=== PATIENT | male | born 1955 | race Caucasian/White ===

== ENCOUNTER 2019-07-18 08:47 | Emergency (ER) | payer MEDICARE ==
[~2019-07-18] VITALS: Ht 180.3 cm; Wt 70.5 kg
[2019-07-18 09:12] VITALS: BP 143/78; Ht 180.3 cm; Wt 70.5 kg
[2019-07-18] MEDS ORDERED: ULTRAM50 MG PO (11:01)
== END 2019-07-18 18:03 | disposition home or self-care (01) ==
LOC: D.ER 08:47
DX: M54.5 Low back pain (principal); J44.9 Chronic obstructive pulmonary disease, unspecified

== ENCOUNTER 2019-07-25 17:18 | Emergency (ER) | payer MEDICARE ==
[~2019-07-25] VITALS: Ht 180.3 cm; Wt 77.3 kg
[~2019-07-25 17:18] MED LIST: ULTRAM50 MG PO
[2019-07-25 17:22] VITALS: Ht 180.3 cm; Wt 77.3 kg
[2019-07-25 18:23] LABS: BASOPHILS 0.2 % (0-2); EOSINOPHILS 2.4 % (0-7); HEMATOCRIT 38.8 % (42.0-54.0); HEMOGLOBIN 12.9 g/dL (13.5-17.5); IMMATURE GRANULOCYTES 0.2 % (0-5); LYMPHOCYTES 30.3 % (15-50); MCH 32.8 pg (26.0-34.0); MCHC 33.2 g/dL (31.0-37.0); MCV 98.7 fL (80.0-100.0); MEAN PLATELET VOLUME 10.1 fL (7.4-10.4); MONOCYTES 5.6 % (2-11); NEUTROPHILS 61.3 % (40-80); PLATELET COUNT 249 10x3/uL (130-400); RBC 3.93 10x6/uL (4.20-6.10); RDW 13.9 % (11.5-14.5); WBC 9.1 10x3/uL (4.8-10.8)
[2019-07-25 18:32] LABS: CALC OSMOLALITY 285 mosm/kg (275-300); CALCIUM 8.9 mg/dL (8.5-10.1); CARBON DIOXIDE 29.2 mmol/L (21.0-32.0); CHLORIDE - SERUM 103 mmol/L (98-107); CREATININE - SERUM 1.3 mg/dL (0.6-1.3); GLUCOSE 99 mg/dL (74-106); POTASSIUM - SERUM 3.5 mmol/L (3.5-5.1); SODIUM 142 mmol/L (136-145); UREA NITROGEN 20 mg/dL (7-18); eGFR NON AFRICAN AMERICAN 59 mL/min (90-120)
[2019-07-25 18:33] LABS: INR 1.04 (0.85-1.17); PROTIME 13.1 SECONDS (11.6-15.0)
[2019-07-25 18:34] LABS: APTT 31.5 SECONDS (22.8-39.4)
[2019-07-25 18:35] LABS: APPEARANCE CLEAR (CLEAR); BILIRUBIN NEGATIVE (NEGATIVE); COLOR YELLOW (YELLOW); EPITHELIAL CELLS 0-5 /hpf (0-5); GLUCOSE NEGATIVE (NEGATIVE); KETONE NEGATIVE (NEGATIVE); NITRITE NEGATIVE (NEGATIVE); PROTEIN NEGATIVE (NEGATIVE); RED CELLS - URINE 0-5 /hpf (0-5); UROBILINOGEN NORMAL (NORMAL); WHITE CELLS - URINE 0-5 /hpf (NEGATIVE)
[2019-07-25 18:49] LABS: ALBUMIN 3.8 g/dL (3.4-5.0); ALKALINE PHOSPHATASE 59 U/L (46-116); ALT (SGPT) 26 U/L (10-68); BILIRUBIN - TOTAL 0.66 mg/dL (0.2-1.3); CKMB 7.6 U/L (0.0-3.6); CREATINE KINASE 433 UL (21-232); MAGNESIUM - SERUM 1.8 mg/dL (1.8-2.4); PROTEIN - SERUM 7.8 g/dL (6.4-8.2)
[2019-07-25 18:54] LABS: TROPONIN-I < 0.017 ng/mL (0.000-0.060)
[2019-07-25 19:04] LABS: UDS - AMPHET POSITIVE QUAL (NEGATIVE); UDS - BARB NEGATIVE QUAL (NEGATIVE); UDS - BENZO NEGATIVE QUAL (NEGATIVE); UDS - COCAINE NEGATIVE QUAL (NEGATIVE); UDS - OPIATE NEGATIVE QUAL (NEGATIVE); UDS - PCP NEGATIVE QUAL (NEGATIVE); UDS - THC POSITIVE QUAL (NEGATIVE)
[2019-07-25 20:42] VITALS: BP 171/76
[2019-07-27 12:08] LABS: HEPATITIS C ANTIBODY 2.5 (0.0-0.9)
[2019-07-29 09:08] LABS: HIV-1 RNA BY PCR <20 (())
== END 2019-07-25 20:43 | disposition home or self-care (01) ==
LOC: D.ER 17:18
PROVIDERS: Family Medicine
DX: E86.0 Dehydration (principal); F19.10 Other psychoactive substance abuse, uncomplicated; Z59.0 Homelessness; J44.9 Chronic obstructive pulmonary disease, unspecified; Z72.0 Tobacco use; K75.9 Inflammatory liver disease, unspecified